=== PATIENT | female | born 1965 | race Asian ===

== ENCOUNTER → 2017-02-04 | Outpatient (CLI) | payer OTHER ==
[~2017-02-04] MED LIST: ASPI-621 PO; ASPI1TAB2 PO; ATOR40TA78 PO; CLOP75TA52 PO; DOCU-131 PO; FENO67CA PO; GEMF600T3 PO; HYDR-3237 PO; HYDR-3245 PO; HYDR25TA6 PO; ISOS30TA8 PO; LETR2.5T PO; LISI1TAB7 PO; METF500T9 PO; METO25TA35 PO; ONDA4TAB7 PO; OXYC1TAB8 PO; PANT40TA3 PO; POTA20TA14 PO; SIMV20TA PO; TAMO10TA PO
== END | disposition home or self-care (01) ==
LOC: CVU 15:56
PROVIDERS: ATTEND Physician Assistant Medical
DX: I65.23 Occlusion and stenosis of bilateral carotid arteries (principal)
CPT/HCPCS: 93880

== ENCOUNTER 2017-03-28 15:41 | Observation (INO) | payer OTHER ==
[~2017-03-28] VITALS: Ht 167.6 cm; Wt 67.0 kg
[~2017-03-28 15:41] MED LIST changes: +ASPI-691 PO; -ASPI1TAB2 PO
[2017-03-28] MEDS ORDERED: CLOP75TA52 PO (16:21)
[2017-03-28] MEDS ORDERED: ONDANSETRON 2MG/ML, 2ML ONE (16:25)
[2017-03-28] MEDS ORDERED: NITROGLYCERIN SINGLE TAB 0.4 MG SL ONE (16:25)
[2017-03-28] MEDS ORDERED: morphine SULFATE 10 MG/ML, 1ML ONE ×2 (16:25→17:31)
[2017-03-28] MEDS ORDERED: ASPIRIN 81 MG TABLET CHEW ONE (16:25)
[2017-03-28] MEDS: NITROGLYCERIN SINGLE TAB 0.4 MG SL PRN ×2 (16:29→16:37)
[2017-03-28] MEDS ORDERED: SODIUM CHLORIDE FLUSH 10ML SYR IVF ONE (16:30)
[2017-03-28] MEDS ORDERED: ASPIRIN 81 MG TABLET CHEW PO ONE (16:30)
[2017-03-28] MEDS ORDERED: ONDANSETRON 2MG/ML, 2ML IVPush ONE (16:30)
[2017-03-28] MEDS: MORPHINE SULFATE 4 MG/ML, 1ML IVPush PRN ×2 (16:30→17:33)
[2017-03-28 16:34] LABS: HEMATOCRIT 42.1 % (34.6-47.8); HEMOGLOBIN 14.4 g/dL (11.7-16.4); WHITE BLOOD COUNT 7.5 x10^3/uL (3.4-10)
[2017-03-28 17:25] LABS: BLOOD UREA NITROGEN 15 mg/dL (7-18)
[2017-03-28] MEDS ORDERED: ACETAMINOPHEN 325 MG TABLET PO ONE (17:30)
[2017-03-28] MEDS ORDERED: ACETAMINOPHEN 325 MG TABLET ONE (17:31)
[2017-03-28 17:32] LABS: ASPARTATE AMINO TRANSFERASE 32 U/L (15-37); IS PT STATUS REG ER OR PRE ER? YES
[2017-03-28] MEDS ORDERED: SODIUM CHLORIDE FLUSH 10ML SYR IVF PRN (18:00)
[2017-03-28 18:19] LABS: PATH.CAST-FLAG NOT PRESENT; SPERM-FLAG NOT PRESENT; SRC-FLAG NOT PRESENT; XTAL-FLAG NOT PRESENT; YLC-FLAG NOT PRESENT
[2017-03-28 18:43] VITALS: BP 119/79
[2017-03-28] MEDS ORDERED: ASPIRIN 325 MG TABLET EC PO ONE (20:00)
[2017-03-28] MEDS ORDERED: ACETAMINOPHEN 325 MG TABLET PO PRN (20:00)
[2017-03-28] MEDS ORDERED: ONDANSETRON 2MG/ML, 2ML IVPush PRN (20:30)
[2017-03-28 20:49] VITALS: BP 113/75
[2017-03-28] MEDS ORDERED: ATORVASTATIN 40 MG TABLET PO SCH (21:00)
[2017-03-28] MEDS ORDERED: ENOXAPARIN 40 MG/0.4 ML SQ SCH (21:30)
[2017-03-28 22:32] LABS: IS PT STATUS REG ER OR PRE ER? NO
[2017-03-28] MEDS: metFORMIN XR 500 MG TAB.ER.24H PO SCH (23:18)
[2017-03-29 01:30] VITALS: BP 101/69
[2017-03-29 05:29] LABS: IS PT STATUS REG ER OR PRE ER? NO
[2017-03-29] MEDS ORDERED: ASPIRIN 325 MG TABLET EC PO SCH (06:00)
[2017-03-29] MEDS: INSULIN ASPART 100 UNITS/ML, PEN SQ-INSULIN SCH ×3 (07:00→16:00)
[2017-03-29] MEDS ORDERED: REGADENOSON 0.4 MG/5 ML SYRINGE ONE (08:30)
[2017-03-29] MEDS ORDERED: ASA/APAP/ CAFFEINE TABLET PO PRN (08:30)
[2017-03-29 08:47] VITALS: BP 100/64
[2017-03-29] MEDS ORDERED: CLOPIDOGREL 75 MG TABLET PO SCH (09:00)
[2017-03-29] MEDS ORDERED: METOPROLOL TARTRATE 25 MG TABLET PO SCH (09:00)
[2017-03-29] MEDS ORDERED: LISINOPRIL 20 MG TABLET PO SCH (09:00)
[2017-03-29] MEDS ORDERED: LETROZOLE 2.5 MG TABLET PO SCH (09:00)
[2017-03-29] MEDS ORDERED: HYDROCHLOROTHIAZIDE 25 MG TABLET PO SCH (09:00)
[2017-03-29] MEDS ORDERED: FENOFIBRATE 145 MG TABLET PO SCH (09:00)
[2017-03-29 12:54] VITALS: BP 100/63
[2017-03-29] MEDS: metFORMIN XR 500 MG TAB.ER.24H PO SCH (12:57)
== END 2017-03-29 17:06 | disposition home or self-care (01) ==
LOC: ED 18:18 → 5SO 18:24 → INTOOBSV 18:24
PROVIDERS: ADMIT Family Medicine; ATTEND Family Medicine
DX: I25.110 Atherosclerotic heart disease of native coronary artery with unstable angina pectoris (principal); I10 Essential (primary) hypertension; E78.5 Hyperlipidemia, unspecified; E11.9 Type 2 diabetes mellitus without complications; I25.2 Old myocardial infarction; Z85.3 Personal history of malignant neoplasm of breast; Z95.1 Presence of aortocoronary bypass graft; Z82.49 Family history of ischemic heart disease and other diseases of the circulatory system
CPT/HCPCS: 36415; 71010; 78452; 80053; 81001; 82962; 83690; 83880; 84484; 85025; 85379; 85610; 85730; 93005; 93017; 96374; 96375; 96376; 99285; A9502; C9898; G0378; J2405; J2785

== ENCOUNTER → 2017-05-15 | Outpatient (CLI) | payer OTHER ==
[~2017-05-15] MED LIST changes: +GADOBUTROL 7.5 MMOL/7.5 ML PFS ONE
== END ==
LOC: CFH 11:59
PROVIDERS: ATTEND Surgery
DX: R22.2 Localized swelling, mass and lump, trunk (principal)
CPT/HCPCS: 71552; A9585

== ENCOUNTER 2017-12-05 15:17 | Observation (INO) | payer BC, OTHER ==
[~2017-12-05] VITALS: Ht 167.6 cm; Wt 65.8 kg
[~2017-12-05 15:17] MED LIST changes: -GADOBUTROL 7.5 MMOL/7.5 ML PFS ONE
[2017-12-05] MEDS ORDERED: ASPIRIN 81 MG TABLET CHEW ONE (16:00)
[2017-12-05] MEDS ORDERED: SODIUM CHLORIDE FLUSH 10ML SYR IVF ONE (16:00)
[2017-12-05] MEDS ORDERED: ASPIRIN 81 MG TABLET CHEW PO ONE (16:00)
[2017-12-05 16:24] LABS: BASOPHILS # (AUTO) 0.04 x10^3/uL (0-0.1); BASOPHILS % (AUTO) 1 % (0-1); EOSINOPHILS # (AUTO) 0.29 x10^3/uL (0-0.4); EOSINOPHILS % (AUTO) 5 % (1-7); LYMPHOCYTES # (AUTO) 1.31 x10^3/uL (1-3.4); LYMPHOCYTES % (AUTO) 20 % (22-44); MD NO; MEAN CORPUSCULAR HEMOGLOBIN 29.5 pg (27.0-34.8); MEAN CORPUSCULAR HGB CONC 34.7 g/dL (32.4-35.8); MEAN CORPUSCULAR VOLUME 85.2 fL (80-100); MEAN PLATELET VOLUME 7.9 fL (7.4-10.4); MONOCYTES # (AUTO) 0.44 x10^3/uL (0.2-0.8); MONOCYTES % (AUTO) 7 % (2-9); NEUTROPHILS # (AUTO) 4.34 x10^3/uL (1.8-6.8); NEUTROPHILS % (AUTO) 68 % (42-75); PLATELET COUNT 288 x10^3/uL (130-400); RED BLOOD COUNT 4.66 x10^6/uL (3.82-5.3); RED CELL DISTRIBUTION WIDTH 13.4 % (9.6-15.2)
[2017-12-05 16:32] LABS: ALBUMIN 3.9 g/dL (3.4-5.0); ANION GAP 9 mmol/L (5-15); CALCIUM 9.9 mg/dL (8.5-10.1); CHLORIDE 100 mmol/L (98-107); CREATININE 1.32 mg/dL (0.55-1.02)
[2017-12-05 16:36] LABS: TROPONIN I < 0.015 ng/mL (0.000-0.045)
[2017-12-05] MEDS ORDERED: ACETAMINOPHEN 500 MG TABLET ONE (17:27)
[2017-12-05] MEDS ORDERED: ACETAMINOPHEN 500 MG TABLET PO ONE (17:30)
[2017-12-05] MEDS ORDERED: ACETAMINOPHEN 325 MG TABLET PO PRN (18:00)
[2017-12-05] MEDS ORDERED: BISACODYL 10 MG SUPP PR PRN (18:00)
[2017-12-05] MEDS ORDERED: DOCUSATE 100 MG CAPSULE PO PRN (18:00)
[2017-12-05] MEDS ORDERED: ONDANSETRON ODT 4 MG PO PRN (18:00)
[2017-12-05] MEDS ORDERED: LABETALOL 5MG/ML, 20ML IVPush PRN (18:00)
[2017-12-05] MEDS ORDERED: ONDANSETRON 2MG/ML, 2ML IVPush PRN (18:00)
[2017-12-05 18:19] VITALS: BP 134/85
[2017-12-05 18:38] LABS: HEMOGLOBIN A1C 8.8 % (4.2-6.3)
[2017-12-05 19:02] VITALS: BP 117/74
[2017-12-05] MEDS: SODIUM CHLORIDE 0.9% 1,000 ML IV SCH (19:44)
[2017-12-05] MEDS: HEPARIN 5,000 UNITS/ML, 1ML SQ SCH (19:45)
[2017-12-05] MEDS: INSULIN REGULAR 100 UNITS/ML, 3ML VIAL SQ-INSULIN SCH (19:56)
[2017-12-05] MEDS ORDERED: ATORVASTATIN 40 MG TABLET PO SCH (21:00)
[2017-12-05 22:32] LABS: TROPONIN I 0.016 ng/mL (0.000-0.045)
[2017-12-05 22:49] VITALS: BP 117/74
[2017-12-06 01:12] VITALS: BP 110/75
[2017-12-06] MEDS: HEPARIN 5,000 UNITS/ML, 1ML SQ SCH ×2 (02:00→10:00)
[2017-12-06 04:54] LABS: ALANINE AMINOTRANSFERASE 29 U/L (12-78); ALBUMIN 3.3 g/dL (3.4-5.0); ANION GAP 10 mmol/L (5-15); CHLORIDE 103 mmol/L (98-107); CHOLESTEROL, TOTAL 212 mg/dL (140-239); CREATININE 1.15 mg/dL (0.55-1.02)
[2017-12-06 04:55] LABS: MEAN CORPUSCULAR HEMOGLOBIN 29.4 pg (27.0-34.8); MEAN CORPUSCULAR HGB CONC 34.3 g/dL (32.4-35.8); MEAN CORPUSCULAR VOLUME 85.7 fL (80-100); PLATELET COUNT 262 x10^3/uL (130-400); RED BLOOD COUNT 4.35 x10^6/uL (3.82-5.3); RED CELL DISTRIBUTION WIDTH 13.2 % (9.6-15.2)
[2017-12-06] MEDS: SODIUM CHLORIDE 0.9% 1,000 ML IV SCH (05:01)
[2017-12-06 05:03] LABS: ALKALINE PHOSPHATASE 75 U/L (45-117); BILIRUBIN,TOTAL 0.3 mg/dL (0.2-1.0); CALCIUM 9.3 mg/dL (8.5-10.1); HDL CHOL % 20 % (28-40); HDL CHOLESTEROL (DIRECT) 42 mg/dL (40-60); LDL CHOLESTEROL,CALCULATED 98 mg/dL (54-169); LDL/HDL RATIO 2.3 (0.5-3.0); TOTAL PROTEIN 6.8 g/dL (6.4-8.2); TRIGLYCERIDES 362 mg/dL (50-200); VLDL CHOLESTEROL 72 mg/dL (0-25)
[2017-12-06 05:05] LABS: TROPONIN I 0.022 ng/mL (0.000-0.045)
[2017-12-06 05:56] LABS: BASOPHILS # (AUTO) 0.07 x10^3/uL (0-0.1); BASOPHILS % (AUTO) 2 % (0-1); EOSINOPHILS # (AUTO) 0.48 x10^3/uL (0-0.4); EOSINOPHILS % (AUTO) 10 % (1-7); LYMPHOCYTES # (AUTO) 1.64 x10^3/uL (1-3.4); LYMPHOCYTES % (AUTO) 35 % (22-44); MD SCAN; MONOCYTES % (AUTO) 9 % (2-9); NEUTROPHILS # (AUTO) 2.07 x10^3/uL (1.8-6.8); NEUTROPHILS % (AUTO) 44 % (42-75)
[2017-12-06] MEDS: INSULIN REGULAR 100 UNITS/ML, 3ML VIAL SQ-INSULIN SCH ×3 (07:00→16:00)
[2017-12-06 07:02] VITALS: BP 99/63
[2017-12-06] MEDS ORDERED: REGADENOSON 0.4 MG/5 ML SYRINGE ONE (08:25)
[2017-12-06] MEDS ORDERED: SENNA/DOCUSATE TABLET PO SCH (09:00)
[2017-12-06] MEDS ORDERED: FENOFIBRATE 145 MG TABLET PO SCH (09:00)
[2017-12-06] MEDS ORDERED: HYDROCHLOROTHIAZIDE 25 MG TABLET PO SCH (09:00)
[2017-12-06] MEDS ORDERED: ASPIRIN 81 MG TABLET EC PO SCH (09:00)
[2017-12-06] MEDS ORDERED: LETROZOLE 2.5 MG TABLET PO SCH (09:00)
[2017-12-06] MEDS ORDERED: ISOSORBIDE MONONITRATE ER 30 MG TABLET PO SCH (09:00)
[2017-12-06] MEDS ORDERED: CLOPIDOGREL 75 MG TABLET PO SCH (09:00)
[2017-12-06] MEDS ORDERED: LISINOPRIL 20 MG TABLET PO SCH (09:00)
[2017-12-06] MEDS ORDERED: METOPROLOL TARTRATE 25 MG TABLET PO SCH (09:00)
[2017-12-06 13:08] VITALS: BP 94/57
== END 2017-12-06 17:47 | disposition home or self-care (01) ==
LOC: ED 17:52 → 5SO 18:00
PROVIDERS: ADMIT Internal Medicine; ATTEND Internal Medicine
DX: R07.89 Other chest pain (principal); E11.9 Type 2 diabetes mellitus without complications; E78.5 Hyperlipidemia, unspecified; I25.10 Atherosclerotic heart disease of native coronary artery without angina pectoris; I10 Essential (primary) hypertension; N17.9 Acute kidney failure, unspecified; K76.0 Fatty (change of) liver, not elsewhere classified; Z95.1 Presence of aortocoronary bypass graft; Z79.84 Long term (current) use of oral hypoglycemic drugs; Z79.82 Long term (current) use of aspirin; Z85.3 Personal history of malignant neoplasm of breast
CPT/HCPCS: 36415; 71045; 76700; 78452; 80048; 80053; 80061; 82040; 83036; 83690; 83735; 84100; 84443; 84484; 85025; 85379; 93005; 93017; 93306; 96360; 96361; 99285; A9502; C9898; G0378; J2785; J7030

== ENCOUNTER → 2018-03-04 | Outpatient (CLI) | payer BC ==
[~2018-03-04] MED LIST changes: -GEMF600T3 PO; +GEMF600T4 PO; +OMNIPAQUE 350 MG/ML, 100ML BOTTLE ONE
== END | disposition home or self-care (01) ==
LOC: CFH 14:14
PROVIDERS: ATTEND Nurse Practitioner Family
DX: I65.23 Occlusion and stenosis of bilateral carotid arteries (principal); J98.4 Other disorders of lung; C50.911 Malignant neoplasm of unspecified site of right female breast
CPT/HCPCS: 70498; 71260; 82565; Q9967

== ENCOUNTER 2018-05-21 13:35 | Observation (INO) | payer BC ==
[~2018-05-21] VITALS: Ht 167.6 cm; Wt 64.3 kg
[~2018-05-21 13:35] MED LIST changes: -ASPI-621 PO; +ASPI81TA45 PO; -OMNIPAQUE 350 MG/ML, 100ML BOTTLE ONE
--- NOTE | 2018-05-21 14:00 | NUR ---
MD IS AT THE BEDSIDE TO ASSESS
--- NOTE | 2018-05-21 14:13 | NUR ---
EKG AT THE BEDSIDE
[2018-05-21 14:47] LABS: BASOPHILS # (AUTO) 0.05 x10^3/uL (0-0.1); BASOPHILS % (AUTO) 1 % (0-1); EOSINOPHILS # (AUTO) 0.44 x10^3/uL (0-0.4); EOSINOPHILS % (AUTO) 8 % (1-7); LYMPHOCYTES # (AUTO) 1.04 x10^3/uL (1-3.4); LYMPHOCYTES % (AUTO) 20 % (22-44); MD NO; MEAN CORPUSCULAR HGB CONC 33.6 g/dL (32.4-35.8); MEAN CORPUSCULAR VOLUME 86.2 fL (80-100); MEAN PLATELET VOLUME 8.1 fL (7.4-10.4); MONOCYTES # (AUTO) 0.45 x10^3/uL (0.2-0.8); MONOCYTES % (AUTO) 9 % (2-9); NEUTROPHILS # (AUTO) 3.25 x10^3/uL (1.8-6.8); NEUTROPHILS % (AUTO) 62 % (42-75); PLATELET COUNT 280 x10^3/uL (130-400); RED BLOOD COUNT 4.87 x10^6/uL (3.82-5.3); RED CELL DISTRIBUTION WIDTH 14.4 % (9.6-15.2)
[2018-05-21 14:52] LABS: INTERNATIONAL NORMALIZED RATIO 0.97 (0.93-1.1); PROTHROMBIN TIME 10.3 Seconds (9.6-11.5)
[2018-05-21 14:56] LABS: ALANINE AMINOTRANSFERASE 33 U/L (12-78); ALBUMIN 4.1 g/dL (3.4-5.0); ANION GAP 7 mmol/L (5-15); CALCIUM 9.4 mg/dL (8.5-10.1); CHLORIDE 104 mmol/L (98-107); CREATININE 1.03 mg/dL (0.55-1.02)
[2018-05-21 14:59] LABS: ALKALINE PHOSPHATASE 90 U/L (45-117); BILIRUBIN,TOTAL 0.6 mg/dL (0.2-1.0); TOTAL PROTEIN 8.1 g/dL (6.4-8.2); TROPONIN I 0.024 ng/mL (0.000-0.045)
[2018-05-21] MEDS ORDERED: ASPIRIN 81 MG TABLET EC ONE (15:27)
[2018-05-21] MEDS ORDERED: ASPIRIN 81 MG TABLET CHEW PO ONE (15:30)
[2018-05-21] MEDS ORDERED: SODIUM CHLORIDE 0.9% 1,000 ML IV SCH (15:55)
[2018-05-21] MEDS ORDERED: NITROGLYCERIN 0.4 MG/SPRAY SL PRN (16:00)
[2018-05-21] MEDS ORDERED: NITROGLYCERIN 0.4 MG BOTTLE (25 TABS) SL PRN (16:00)
--- NOTE | 2018-05-21 16:01 | NUR ---
WE ARE AWAITING A ROOM ASSIGNMENT FOR ADMISSION TO [facility]. PT RESTING COMFORTABLY ON AN E.R. GURNEY. VS ARE STABLE, AND WDL. I WILL CONTINUE TO MONITOR AND TREAT ORDERED, WELL PRN WHILE AWAITING ROOM ASSIGNMENT.
--- NOTE | 2018-05-21 16:07 | NUR ---
VERBAL SBAR REPORT EXCHANGED Aleah GUTIERREZ (QUINTIN) ON THE FLOOR FOR ADMISSION. NO PIV IN PLACE. WE WILL BEGIN TO PREPARE FOR TRANSPORT TO THE FLOOR AT THIS TIME.
[2018-05-21] MEDS ORDERED: hydrALAzine 20 MG/ML, 1ML IVPush PRN (16:30)
[2018-05-21] MEDS ORDERED: ONDANSETRON 2MG/ML, 2ML IVPush PRN (16:30)
[2018-05-21] MEDS ORDERED: BISACODYL 10 MG SUPP PR PRN (16:30)
[2018-05-21] MEDS ORDERED: POLYETHYLENE GLYCOL 17 GM PACKET PO PRN (16:30)
[2018-05-21] MEDS ORDERED: DOCUSATE 100 MG CAPSULE PO PRN (16:30)
[2018-05-21 17:03] VITALS: BP 96/60
[2018-05-21 17:34] LABS: TROPONIN I 0.023 ng/mL (0.000-0.045)
[2018-05-21] MEDS: ACETAMINOPHEN 325 MG TABLET PO PRN (18:05)
[2018-05-21] MEDS: PANTOPRAZOLE 40 MG IV IVPush SCH (18:06)
[2018-05-21 19:32] VITALS: BP 96/62
[2018-05-21] MEDS ORDERED: ATORVASTATIN 40 MG TABLET PO SCH (21:00)
[2018-05-21] MEDS: metFORMIN XR 500 MG TAB.ER.24H PO SCH (21:23)
[2018-05-21 23:30] LABS: TROPONIN I 0.028 ng/mL (0.000-0.045)
[2018-05-22] MEDS: ACETAMINOPHEN 325 MG TABLET PO PRN ×2 (00:31→08:22)
[2018-05-22 02:15] VITALS: BP 106/63
[2018-05-22] MEDS: PANTOPRAZOLE 40 MG IV IVPush SCH (05:13)
[2018-05-22 05:45] LABS: CHOL/HDL RATIO 3.7; LDL/HDL RATIO 1.8 (0.5-3.0); THYROID STIMULATING HORMONE 1.59 mIU/L (0.358-3.740)
[2018-05-22 08:18] VITALS: BP 105/70
[2018-05-22] MEDS: metFORMIN XR 500 MG TAB.ER.24H PO SCH (08:21)
[2018-05-22] MEDS ORDERED: FENOFIBRATE 145 MG TABLET PO SCH (09:00)
[2018-05-22] MEDS ORDERED: ISOSORBIDE MONONITRATE ER 30 MG TABLET PO SCH (09:00)
[2018-05-22] MEDS ORDERED: CLOPIDOGREL 75 MG TABLET PO SCH (09:00)
[2018-05-22] MEDS ORDERED: HYDROCHLOROTHIAZIDE 25 MG TABLET PO SCH (09:00)
[2018-05-22] MEDS ORDERED: ASPIRIN 81 MG TABLET EC PO SCH (09:00)
[2018-05-22] MEDS ORDERED: LISINOPRIL 20 MG TABLET PO SCH (09:00)
[2018-05-22] MEDS ORDERED: METOPROLOL TARTRATE 25 MG TABLET PO SCH (09:00)
[2018-05-22] MEDS ORDERED: LETROZOLE 2.5 MG TABLET PO SCH (09:00)
== END 2018-05-22 13:50 | disposition home or self-care (01) ==
LOC: ED 15:46 → UNDOADMOB 15:47 → EDIP 15:47 → INTOOBSV 15:47 → EDIP 15:55 → ED 15:58 → EDIP 16:16 → 5SO 16:16 → UNDODISOB 05-22 13:50
PROVIDERS: ADMIT Hospitalist; ATTEND Hospitalist
DX: R07.9 Chest pain, unspecified (principal); K85.90 Acute pancreatitis without necrosis or infection, unspecified; N17.9 Acute kidney failure, unspecified; E11.9 Type 2 diabetes mellitus without complications; E78.1 Pure hyperglyceridemia; E78.5 Hyperlipidemia, unspecified; I10 Essential (primary) hypertension; I25.10 Atherosclerotic heart disease of native coronary artery without angina pectoris; I25.2 Old myocardial infarction; Z79.84 Long term (current) use of oral hypoglycemic drugs; Z85.3 Personal history of malignant neoplasm of breast; Z95.1 Presence of aortocoronary bypass graft; Z90.10 Acquired absence of unspecified breast and nipple; Z82.49 Family history of ischemic heart disease and other diseases of the circulatory system; Z80.0 Family history of malignant neoplasm of digestive organs; Z79.82 Long term (current) use of aspirin; Z79.899 Other long term (current) drug therapy
CPT/HCPCS: 36415; 71045; 80053; 80061; 82962; 83036; 83690; 83735; 83880; 84100; 84443; 84484; 85025; 85610; 85730; 93005; 96374; 96375; 99284; C9113; G0378; J7030; 99285

== ENCOUNTER → 2019-04-05 | Outpatient (CLI) | payer BC ==
[~2019-04-05] MED LIST changes: -GEMF600T4 PO; +GEMF600T8 PO; +LISI1TAB20 PO; -LISI1TAB7 PO; +METF500T12 PO; -METF500T9 PO; +OMNIPAQUE 350 MG/ML, 100ML BOTTLE ONE
== END | disposition home or self-care (01) ==
LOC: CFH 15:03
PROVIDERS: ATTEND Internal Medicine
DX: I65.23 Occlusion and stenosis of bilateral carotid arteries (principal); M50.322 Other cervical disc degeneration at C5-C6 level; E11.9 Type 2 diabetes mellitus without complications; Z85.3 Personal history of malignant neoplasm of breast; F17.200 Nicotine dependence, unspecified, uncomplicated
CPT/HCPCS: 70498; 82565; Q9967

== ENCOUNTER → 2019-04-25 | Outpatient (CLI) | payer BC ==
[~2019-04-25] MED LIST changes: -OMNIPAQUE 350 MG/ML, 100ML BOTTLE ONE
== END | disposition home or self-care (01) ==
LOC: CFH 08:26
PROVIDERS: ATTEND Pathology Hematology
DX: C50.911 Malignant neoplasm of unspecified site of right female breast (principal); M85.88 Other specified disorders of bone density and structure, other site
CPT/HCPCS: 77080; 78306; A9503

== ENCOUNTER → 2019-05-09 | Outpatient (CLI) | payer BC ==
[~2019-05-09] MED LIST changes: +GADOTERATE 7.5 MMOL/15 ML SYR ONE
== END | disposition home or self-care (01) ==
LOC: MRI 13:47 → EDSTATUS 14:00
PROVIDERS: ATTEND Pathology Hematology
DX: C50.911 Malignant neoplasm of unspecified site of right female breast (principal)
CPT/HCPCS: 71552; A9575

== ENCOUNTER → 2019-05-17 | Outpatient (CLI) | payer BC, OTHER ==
[~2019-05-17] MED LIST changes: -GADOTERATE 7.5 MMOL/15 ML SYR ONE; +OMNIPAQUE 350 MG/ML, 75ML BOTTLE ONE
== END | disposition home or self-care (01) ==
LOC: CFH 11:58
PROVIDERS: ATTEND Pathology Hematology
DX: C50.911 Malignant neoplasm of unspecified site of right female breast (principal); S22.31XD Fracture of one rib, right side, subsequent encounter for fracture with routine healing; J98.11 Atelectasis; I51.7 Cardiomegaly; K76.0 Fatty (change of) liver, not elsewhere classified; M19.011 Primary osteoarthritis, right shoulder; X58.XXXD Exposure to other specified factors, subsequent encounter
CPT/HCPCS: 71260; Q9967

== ENCOUNTER → 2020-03-12 | Outpatient (CLI) | payer BC ==
[~2020-03-12] MED LIST changes: -LETR2.5T PO; +LETR2.5T3 PO; +METF-754 PO; -METF500T12 PO; +OMNIPAQUE 350 MG/ML, 100ML BOTTLE ONE; -OMNIPAQUE 350 MG/ML, 75ML BOTTLE ONE; -TAMO10TA PO; +TAMO10TA6 PO
== END | disposition home or self-care (01) ==
LOC: CFH 14:10
PROVIDERS: ATTEND Registered Nurse
DX: I65.23 Occlusion and stenosis of bilateral carotid arteries (principal)
CPT/HCPCS: 70498; Q9967

== ENCOUNTER 2020-05-20 08:20 | Inpatient (IN) | payer BC ==
[~2020-05-20] VITALS: Ht 167.6 cm; Wt 67.7 kg
[~2020-05-20 08:20] MED LIST changes: -OMNIPAQUE 350 MG/ML, 100ML BOTTLE ONE
--- NOTE | 2020-05-20 08:53 | NUR ---
TASK RN. PT STATES CP AT 7/10 SUBSTERNAL WITH SOB, STATES PAIN RADIATES TO NECK. PT PLACED ON MONITORS AND IV STARTED. DR. RICO AT BEDSIDE FOR ASSESSMENT. REPORT TO ROD RIBEIRO.
[2020-05-20] MEDS ORDERED: MORPHINE SULFATE 4 MG/ML, 1ML IVPush PRN (09:00)
[2020-05-20] MEDS ORDERED: SODIUM CHLORIDE FLUSH 10ML SYR IVF ONE (09:00)
[2020-05-20] MEDS ORDERED: ONDANSETRON 2MG/ML, 2ML IVPush ONE (09:00)
[2020-05-20] MEDS ORDERED: ASPIRIN 81 MG TABLET CHEW PO ONE (09:00)
[2020-05-20] MEDS ORDERED: ONDANSETRON 2MG/ML, 2ML ONE (09:06)
[2020-05-20] MEDS ORDERED: MORPHINE SULFATE 4 MG/ML, 1ML ONE (09:06)
[2020-05-20] MEDS ORDERED: ASPIRIN 81 MG TABLET CHEW ONE (09:07)
--- NOTE | 2020-05-20 09:20 | NUR ---
pt resting nada up to br steady gait returned to the room on full monitoring
[2020-05-20 09:21] LABS: BASOPHILS % (AUTO) 0 % (0-1); EOSINOPHILS % (AUTO) 6 % (1-7); LYMPHOCYTES % (AUTO) 19 % (22-44); MEAN CORPUSCULAR HEMOGLOBIN 29.1 pg (27.0-34.8); MEAN CORPUSCULAR HGB CONC 33.3 g/dL (32.4-35.8); MEAN PLATELET VOLUME 7.4 fL (7.4-10.4); MONOCYTES % (AUTO) 11 % (2-9); NEUTROPHILS % (AUTO) 63 % (42-75); PLATELET COUNT 386 x10^3/uL (130-400); RED CELL DISTRIBUTION WIDTH 13.8 % (9.6-15.2)
[2020-05-20 09:46] LABS: ALANINE AMINOTRANSFERASE 41 U/L (12-78); ALBUMIN 3.5 g/dL (3.4-5.0); ANION GAP 3 mmol/L (5-15); CALCIUM 8.8 mg/dL (8.5-10.1); CHLORIDE 108 mmol/L (98-107)
[2020-05-20 09:50] LABS: MD SCAN
[2020-05-20 09:51] LABS: ALKALINE PHOSPHATASE 88 U/L (45-117); BILIRUBIN,TOTAL 0.3 mg/dL (0.2-1.0); TOTAL PROTEIN 7.4 g/dL (6.4-8.2)
--- NOTE | 2020-05-20 10:09 | NUR ---
erp to the bs pt to be admit
[2020-05-20] MEDS ORDERED: DEXTROSE 4 GM TAB.CHEW PO PRN (11:00)
[2020-05-20] MEDS ORDERED: DEXTROSE 50%, 50ML SYRINGE IVPush PRN (11:00)
[2020-05-20] MEDS ORDERED: ONDANSETRON 2MG/ML, 2ML IV PRN (11:00)
[2020-05-20] MEDS ORDERED: NITROGLYCERIN 0.4 MG/SPRAY SL PRN (11:00)
[2020-05-20] MEDS ORDERED: BISACODYL 5 MG EC TABLET PO PRN (11:00)
[2020-05-20] MEDS: INSULIN LISPRO 100 UNITS/ML, PEN SQ-INSULIN SCH ×3 (11:00→20:34)
[2020-05-20] MEDS ORDERED: GLUCAGON 1 MG IM PRN (11:00)
[2020-05-20] MEDS ORDERED: SODIUM CHLORIDE FLUSH 10ML SYR IVF PRN (11:00)
[2020-05-20] MEDS ORDERED: NITROGLYCERIN 0.4 MG BOTTLE (25 TABS) SL PRN ×2 (11:00)
--- NOTE | 2020-05-20 11:23 | NUR ---
HOSPITALIST IN TO SEE THE PT WILL BE CANCELLING THE HUMALOG PEN PT TO HAVE METFORMIN ONLY
[2020-05-20 11:50] LABS: CHOLESTEROL, TOTAL 199 mg/dL (140-239); TRIGLYCERIDES 477 mg/dL (50-200)
[2020-05-20 11:55] LABS: CHOL/HDL RATIO 5.5; HDL CHOL % 18 % (28-40); HDL CHOLESTEROL (DIRECT) 36 mg/dL (40-60); TROPONIN I 0.042 ng/mL (0.000-0.045)
[2020-05-20 12:24] VITALS: BP 112/72
[2020-05-20] MEDS: SODIUM CHLORIDE 0.9% 1,000 ML IV SCH ×2 (14:30→23:34)
[2020-05-20] MEDS: ACETAMINOPHEN 650 MG/20.3 ML UDC PO PRN ×2 (14:43→23:33)
[2020-05-20 15:17] LABS: TROPONIN I 0.031 ng/mL (0.000-0.045)
[2020-05-20] MEDS: METOPROLOL TARTRATE 25 MG TAB PO SCH (17:45)
[2020-05-20] MEDS ORDERED: GLIP5TAB10 PO (18:11)
[2020-05-20] MEDS ORDERED: DAPA5TAB PO (18:11)
[2020-05-20 19:14] VITALS: BP 103/68
[2020-05-20] MEDS: SODIUM CHLORIDE FLUSH 10ML SYR IVF SCH ×2 (20:32→20:35)
[2020-05-20] MEDS ORDERED: ATORVASTATIN 80 MG TABLET PO SCH (21:00)
[2020-05-20] MEDS ORDERED: METOPROLOL TARTRATE 25 MG TAB PO SCH (21:00)
[2020-05-21 00:47] VITALS: BP 91/59
[2020-05-21 05:25] VITALS: BP 112/75
[2020-05-21] MEDS: METOPROLOL TARTRATE 25 MG TAB PO SCH (05:27)
[2020-05-21] MEDS ORDERED: ASPIRIN 81 MG TABLET EC PO SCH (06:00)
[2020-05-21 06:12] LABS: BASOPHILS % (AUTO) 1 % (0-1); EOSINOPHILS % (AUTO) 9 % (1-7); LYMPHOCYTES % (AUTO) 28 % (22-44); MEAN CORPUSCULAR HEMOGLOBIN 29.2 pg (27.0-34.8); MEAN CORPUSCULAR HGB CONC 33.4 g/dL (32.4-35.8); MEAN PLATELET VOLUME 7.3 fL (7.4-10.4); MONOCYTES % (AUTO) 14 % (2-9); NEUTROPHILS % (AUTO) 47 % (42-75); PLATELET COUNT 319 x10^3/uL (130-400); RED BLOOD COUNT 4.01 x10^6/uL (3.82-5.3); RED CELL DISTRIBUTION WIDTH 13.7 % (9.6-15.2)
[2020-05-21 06:18] LABS: CHLORIDE 113 mmol/L (98-107)
[2020-05-21 06:25] LABS: MD NO
[2020-05-21 06:30] LABS: ALANINE AMINOTRANSFERASE 27 U/L (12-78); ALBUMIN 2.7 g/dL (3.4-5.0); ALKALINE PHOSPHATASE 70 U/L (45-117); ANION GAP 4 mmol/L (5-15); BILIRUBIN,TOTAL 0.3 mg/dL (0.2-1.0); CALCIUM 8.9 mg/dL (8.5-10.1); CREATININE 0.92 mg/dL (0.55-1.02)
[2020-05-21] MEDS: INSULIN LISPRO 100 UNITS/ML, PEN SQ-INSULIN SCH ×2 (07:00→11:00)
[2020-05-21 07:20] VITALS: BP 107/71
[2020-05-21] MEDS ORDERED: CLOPIDOGREL 75 MG TABLET PO SCH (09:00)
[2020-05-21] MEDS: SODIUM CHLORIDE FLUSH 10ML SYR IVF SCH ×2 (09:00→12:26)
[2020-05-21] MEDS ORDERED: REGADENOSON 0.4 MG/5 ML SYRINGE ONE (09:01)
[2020-05-21] MEDS: SODIUM CHLORIDE 0.9% 1,000 ML IV SCH (10:30)
[2020-05-21] MEDS: ACETAMINOPHEN 650 MG/20.3 ML UDC PO PRN (12:12)
[2020-05-21 12:34] VITALS: BP 121/68
== END 2020-05-21 15:54 | disposition home or self-care (01) | DRG 313 ==
LOC: ED 09:21 → EDIP 10:57 → 5SO 12:13 → DCLOUNGE 05-21 15:49
PROVIDERS: ADMIT Hospitalist; ATTEND Hospitalist
DX: R07.89 Other chest pain (principal); E11.9 Type 2 diabetes mellitus without complications; I25.2 Old myocardial infarction; Z95.1 Presence of aortocoronary bypass graft; Z95.5 Presence of coronary angioplasty implant and graft; Z88.8 Allergy status to other drugs, medicaments and biological substances; I25.10 Atherosclerotic heart disease of native coronary artery without angina pectoris; Z79.899 Other long term (current) drug therapy; Z79.82 Long term (current) use of aspirin
CPT/HCPCS: 36415; 71045; 78452; 80053; 80061; 82962; 83880; 84484; 85025; 93005; 93017; 93306; G0378; J2405; J2785; A9502; J2270; J7030